=== PATIENT | male | born 1970 | race Two or more races ===

== ENCOUNTER 2024-05-16 17:44 | Emergency (ER) | payer OTHER ==
[~2024-05-16] VITALS: Ht 172.7 cm; Wt 81.8 kg
[2024-05-16 17:44] VITALS: BP 126/82; PULSE 98; RESP 16; TEMP 98.2; O2SAT 97
[2024-05-16] MEDS: KETOROLAC TROMETH 60MG/2ML VIAL IM ONE (23:40)
[2024-05-16] MEDS ORDERED: METH-1181 PO (23:56)
[2024-05-16] MEDS ORDERED: IBUP-1456 PO (23:56)
== END 2024-05-17 00:21 | disposition home or self-care (01) ==
LOC: ER 17:44 → EDBD 17:44 → ER 05-17 00:10
DX: S13.4XXA Sprain of ligaments of cervical spine, initial encounter (principal); S29.012A Strain of muscle and tendon of back wall of thorax, initial encounter; S39.012A Strain of muscle, fascia and tendon of lower back, initial encounter; S46.911A Strain of unspecified muscle, fascia and tendon at shoulder and upper arm level, right arm, initial encounter; K76.89 Other specified diseases of liver; N28.1 Cyst of kidney, acquired; Z88.6 Allergy status to analgesic agent; V43.62XA Car passenger injured in collision with other type car in traffic accident, initial encounter; Y93.89 Activity, other specified; Y92.488 Other paved roadways as the place of occurrence of the external cause; Y99.8 Other external cause status
CPT/HCPCS: 71250; 72125; 72128; 72131; 73030; 74176; 96372; 99285; J1885